=== PATIENT | male | born 1990 | race Caucasian/White ===

== ENCOUNTER 2017-06-16 19:36 | Emergency (ER) | payer OTHER ==
[~2017-06-16] VITALS: Ht 182.9 cm; Wt 89.9 kg
[~2017-06-16 19:36] MED LIST: ATOM40CA PO; ATOM60CA PO; BUPRTAB51 PO; OXCA300T PO
[2017-06-16 19:50] VITALS: TEMP 36.8; Ht 182.9 cm; Wt 89.9 kg
--- NOTE | 2017-06-16 20:03 | EMERGENCY ROOM VISIT NOTE ---
History Report prepared by Jeniffer: Minnie Rowan Under the Supervision of: Dr. Hesham Rosas M.D. First contact with patient: 19:42 Chief Complaint: MENTAL HEALTH EVALUATION Stated Complaint: MHID History of Present Illness The patient is a 27 year old male who presents to the Emergency Room by EMS with complaints of having constant suicidal ideations. The patient states he has thought of different ways to kill himself. He admits to having a plan of carbon monoxide poisoning by car exhaust. The patient states "there hasn't been a day where I haven't felt this way". The patient's called 911. He was admitted for 3-4 days this past month in [place] for suicide ideations and was given for Prozac. The patient has a history of ADHD, anxiety, and depression. He denies thoughts of hurting anyone else or hallucinogens. He also denies alcohol or drug use. The patient states he's been eating and drinking normally. Source of History: patient Onset: just prior to arrival Position: other (generalized) Timing: constant Note: pt denies homicidal ideations and hallucinations. Review of Systems See HPI for pertinent positives & negatives. A total of 10 systems reviewed and were otherwise negative. Past Medical & Surgical Medical Problems: (1) ADHD (2) Anxiety (3) Depression Family History no pertinent family history stated Social History Alcohol Use: none Drug Use: none Marital Status: Housing Status: lives with family Occupation Status: unemployed Current/Historical Medications Scheduled Chlorpromazine Hcl (Thorazine), 50 MG PO BID Fluoxetine (Prozac), 10 MG PO DAILY Mirtazapine Soltab (Remeron Soltab), 30 MG PO HS Physical Exam Vital Signs Date Time Temp Pulse Resp B/P (MAP) Pulse Ox O2 Delivery O2 Flow Rate FiO2 06/16/17 21:37 66 18 140/70 96 Room Air 06/16/17 19:50 36.8 68 18 118/72 97 Room Air Physical Exam GENERAL: Patient appears depressed and in no acute distress. HEENT: No acute trauma, normocephalic atraumatic, mucous membranes moist, no nasal congestion, no scleral icterus. NECK: No stridor, no adenopathy, no meningismus, trachea is midline. LUNGS: No dyspnea. Clear to auscultation and equal bilaterally. No wheeze, no rhonchi. HEART: Regular rate and rhythm. No murmurs, rubs, gallops appreciated. ABDOMEN: Soft, nontender, bowel sounds positive, no masses appreciated, no peritonitis. BACK: No midline tenderness, no CVA tenderness EXTREMITIES: Normal motion all extremities, no cyanosis, no edema. NEUROLOGIC: Alert and oriented, no acute motor or sensory deficits, no focal weakness, cranial nerves grossly intact. SKIN: No rash, no jaundice, no diaphoresis. PSYCH: Admits suicidal ideation with plan. Denies homicidal ideation. Admits history of depression. Medical Decision & Procedures Laboratory Results 06/16/17 20:18 Red Blood Count 5.29, Mean Corpuscular Volume 85.1, Mean Corpuscular Hemoglobin 29.9, Mean Corpuscular Hemoglobin Concent 35.1, Mean Platelet Volume 11.2, Neutrophils (%) (Auto) 56.8, Lymphocytes (%) (Auto) 32.7, Monocytes (%) (Auto) 7.4, Eosinophils (%) (Auto) 2.5, Basophils (%) (Auto) 0.5, Neutrophils # (Auto) 4.61, Lymphocytes # (Auto) 2.65, Monocytes # (Auto) 0.60, Eosinophils # (Auto) 0.20, Basophils # (Auto) 0.04 06/16/17 20:18 Test 06/16/17 20:00 06/16/17 20:18 Urine Color YELLOW Urine Appearance CLEAR (CLEAR) Urine pH 7.5 (4.5-7.5) Urine Specific [place] 1.027 (1.000-1.030) Urine Protein NEG (NEG) Urine Glucose (UA) NEG (NEG) Urine Ketones NEG (NEG) Urine Occult Blood NEG (NEG) Urine Nitrite NEG (NEG) Urine Bilirubin NEG (NEG) Urine Urobilinogen NEG (NEG) Urine Leukocyte Esterase NEG (NEG) Urine WBC (Auto) 1-5 /hpf (0-5) Urine RBC (Auto) 0-4 /hpf (0-4) Urine Hyaline Casts (Auto) 0 /lpf (0-5) Urine Epithelial Cells (Auto) 10-20 /lpf (0-5) Urine Bacteria (Auto) NEG (NEG) Urine Opiates Screen NEG (NEG) Urine Methadone, Qualitative NEG (NEG) Urine Barbiturates NEG (NEG) Urine Phencyclidine (PCP) Level NEG (NEG) Ur Amphetamine/Methamphetamine NEG (NEG) MDMA (Ecstasy) Screen NEG (NEG) Urine Benzodiazepines Screen NEG (NEG) Urine Cocaine Metabolite NEG (NEG) Urine Marijuana (THC) NEG (NEG) White Blood Count 8.11 K/uL (4.8-10.8) Red Blood Count 5.29 M/uL (4.7-6.1) Hemoglobin 15.8 g/dL (14.0-18.0) Hematocrit 45.0 % (42-52) Mean Corpuscular Volume 85.1 fL (80-100) Mean Corpuscular Hemoglobin 29.9 pg (25-34) Mean Corpuscular Hemoglobin Concent 35.1 g/dl (32-36) Platelet Count 240 K/uL (130-400) Mean Platelet Volume 11.2 fL (7.4-10.4) Neutrophils (%) (Auto) 56.8 % Lymphocytes (%) (Auto) 32.7 % Monocytes (%) (Auto) 7.4 % Eosinophils (%) (Auto) 2.5 % Basophils (%) (Auto) 0.5 % Neutrophils # (Auto) 4.61 K/uL (1.4-6.5) Lymphocytes # (Auto) 2.65 K/uL (1.2-3.4) Monocytes # (Auto) 0.60 K/uL (0.11-0.59) Eosinophils # (Auto) 0.20 K/uL (0-0.5) Basophils # (Auto) 0.04 K/uL (0-0.2) RDW Standard Deviation 42.7 fL (36.4-46.3) RDW Coefficient of Variation 13.7 % (11.5-14.5) Immature Granulocyte % (Auto) 0.1 % Immature Granulocyte # (Auto) 0.01 K/uL (0.00-0.02) Anion Gap 6.0 mmol/L (3-11) Est Creatinine Clear Calc Drug Dose 103.3 ml/min Estimated GFR () 96.8 Estimated GFR (Non- 83.5 BUN/Creatinine Ratio 9.8 (10-20) Calcium Level 9.0 mg/dl (8.5-10.1) Total Bilirubin 0.4 mg/dl (0.2-1) Aspartate Amino Transf (AST/SGOT) 27 U/L (15-37) Alanine Aminotransferase (ALT/SGPT) 79 U/L (12-78) Alkaline Phosphatase 87 U/L (45-117) Total Protein 7.7 gm/dl (6.4-8.2) Albumin 4.1 gm/dl (3.4-5.0) Globulin 3.6 gm/dl (2.5-4.0) Albumin/Globulin Ratio 1.1 (0.9-2) Thyroid Stimulating Hormone (TSH) 1.750 uIu/ml (0.300-4.500) Salicylates Level < 1.7 mg/dl (2.8-20) Acetaminophen Level < 2 ug/ml (10-30) Ethyl Alcohol mg/dL < 3.0 mg/dl (0-3) Laboratory results as reviewed by me. ED Course 1943: The patient was evaluated in room A8. A complete history and physical exam was performed. 2149: Attempting a mental health placement. 1030: This patient was signed out to Dr. Mtz at the change of shifts. Medical Decision Differential: Mood Disorder, Overdose, Infectious, Electrolyte Abnormality, Cardiac, Hepatic, Endocrine, Toxicologic, Neurologic, amongst other pathologies entertained. 27 yr old male with long history of depression and chronic suicidality though notes usually not to this severity. Notes thinking of killing self with carbon monoxide though has made no act of furtherance. He feels he is at risk of killing himself at this time. Recent admission [facility] and notes that initially was helpful. Denies specific cause of this incident. Denies attempt. Medically clear. Signed out to Dr Mtz awaiting further mental health evaluation. Medication Reconcilliation Current Medication List: was personally reviewed by me Blood Pressure Screening Patient's blood pressure: Normal blood pressure Blood pressure disposition: Did not require urgent referral Impression Primary Impression: Depression Additional Impression: Suicidal ideation Scribe Attestation The scribe's documentation has been prepared under my direction and personally reviewed by me in its entirety. I confirm that the note above accurately reflects all work, treatment, procedures, and medical decision making performed by me. Departure Information Referrals No Doctor, Assigned (PCP) Patient Instructions My [facility] Problem Qualifiers
[2017-06-16 20:22] LABS: URINE APPEARANCE CLEAR (CLEAR); URINE BILIRUBIN NEG (NEG); URINE COLOR YELLOW; URINE NITRITE NEG (NEG); URINE PH 7.5 (4.5-7.5); URINE SPECIFIC GRAVITY 1.027 (1.000-1.030); UROBILINOGEN NEG (NEG); ZZUR CULT IF INDIC CLEAN CATCH NO
[2017-06-16 20:27] LABS: MANUAL MICROSCOPIC REQUIRED? NO; REVIEW REQ? NO
[2017-06-16 20:32] LABS: BASO % 0.5 %; BASO ABS # 0.04 K/uL (0-0.2); COMPLETE YES; EOS % 2.5 %; IG% 0.1 %; LYMPH % 32.7 %; LYMPH ABS # 2.65 K/uL (1.2-3.4); MEAN CELL VOLUME 85.1 fL (80-100); MEAN CORPUSCULAR HEMOGLOBIN 29.9 pg (25-34); MEAN CORPUSCULAR HGB CONC 35.1 g/dl (32-36); MEAN PLATELET VOLUME 11.2 fL (7.4-10.4); MONO % 7.4 %; NEUT % 56.8 %; PLATELET COUNT 240 K/uL (130-400); RED BLOOD COUNT 5.29 M/uL (4.7-6.1); WHITE BLOOD COUNT 8.11 K/uL (4.8-10.8)
[2017-06-16] MEDS ORDERED: CHLO1TAB15 PO (20:48)
[2017-06-16] MEDS ORDERED: FLUO10CA48 PO (20:48)
[2017-06-16] MEDS ORDERED: MIRT30TA2 PO (20:48)
[2017-06-16 20:56] LABS: BUN/CREATININE RATIO 9.8 (10-20); CREATININE 1.2 mg/dl (0.60-1.40); POTASSIUM 3.8 mmol/L (3.5-5.1)
[2017-06-16 21:05] LABS: BENZODIAZEPINE, URINE NEG (NEG); COCAINE,URINE NEG (NEG); PHENCYCLIDINE, URINE NEG (NEG)
[2017-06-16 21:06] LABS: ALB/GLOB RATIO 1.1 (0.9-2); THYROID STIMULATING HORMONE 1.75 uIu/ml (0.300-4.500)
[2017-06-16 21:21] LABS: ACETAMINOPHEN < 2 ug/ml (10-30)
--- NOTE | 2017-06-17 01:20 | EMERGENCY ROOM VISIT NOTE ---
ED Visit Note First contact with patient: 22:28 I assumed care at the change of shift. A bed search was underway. The patient was felt medically clear for a psychiatric admission/stay. The patient was voluntary. The patient has been accepted at the [facility]. The paper for transport were completed. The patient has been cooperative during his ER stay while under my care.
[2017-06-17 03:04] VITALS: BP 140/83; PULSE 87; O2SAT 97
== END 2017-06-17 03:05 ==
LOC: EDBD 19:36 → C.EDA 19:38
DX: F32.9 Major depressive disorder, single episode, unspecified (principal); R45.851 Suicidal ideations; F41.9 Anxiety disorder, unspecified; F90.9 Attention-deficit hyperactivity disorder, unspecified type; Z79.899 Other long term (current) drug therapy